=== PATIENT | male | born 1985 | race Caucasian/White ===

== ENCOUNTER 2024-03-31 19:53 | Emergency (ER) | payer MEDICAID, SELFPAY ==
--- NOTE | ~2024-03-31 | XR_ITS ---
Examination: XR elbow RT min 3V (accession [id number]), XR ankle RT min 3V (accession [id number]), XR knee RT 3V (accession [id number]) Indication: pain, injury Comparison: No pertinent prior studies are currently available for comparison. Technique: 4 views of the right knee, 3 views of the right ankle, and 3 views of the right elbow obtained Findings: Right knee: Incidental bipartite patella noted. No significant knee joint effusion. Bones are normal anatomic alignment with no acute fracture or dislocation. Right ankle: Significant soft tissue swelling is seen laterally but the underlying bony structures appear to be intact. I do not appreciate any acute fracture or dislocation. Ankle mortise alignment is preserved. Right elbow: No significant elbow joint effusion. Bones are in normal anatomic alignment with no acute fracture or dislocation. XR/XR knee RT 3V Impression: Significant soft tissue swelling about the lateral aspect of the ankle but no acute underlying fracture or dislocation seen. Electronically signed by: Donato Shaikh MD 03/31/2024 09:46 PM EDT
--- NOTE | ~2024-03-31 | XR_ITS ---
Examination: XR elbow RT min 3V (accession [id number]), XR ankle RT min 3V (accession [id number]), XR knee RT 3V (accession [id number]) Indication: pain, injury Comparison: No pertinent prior studies are currently available for comparison. Technique: 4 views of the right knee, 3 views of the right ankle, and 3 views of the right elbow obtained Findings: Right knee: Incidental bipartite patella noted. No significant knee joint effusion. Bones are normal anatomic alignment with no acute fracture or dislocation. Right ankle: Significant soft tissue swelling is seen laterally but the underlying bony structures appear to be intact. I do not appreciate any acute fracture or dislocation. Ankle mortise alignment is preserved. Right elbow: No significant elbow joint effusion. Bones are in normal anatomic alignment with no acute fracture or dislocation. XR/XR elbow RT min 3V Impression: Significant soft tissue swelling about the lateral aspect of the ankle but no acute underlying fracture or dislocation seen. Electronically signed by: Donato Shaikh MD 03/31/2024 09:46 PM EDT
--- NOTE | ~2024-03-31 | CT_ITS ---
EXAMINATION: CT HEAD WITHOUT CONTRAST CT CERVICAL SPINE WITHOUT CONTRAST CLINICAL INFORMATION: Injury with pain. COMPARISON: No relevant prior imaging. TECHNIQUE: Chancery Clerk images were obtained. CT imaging of the head and cervical spine was performed without contrast. Data was reformatted into multiplanar images at the acquisition rescission. This CT examination was performed using dose optimization techniques as appropriate, including one or more of the following: Automated exposure control, iterative reconstruction, and adjustment of technique factors (mA and/or kVp) according to patient size (this includes techniques or standardized protocols for targeted exams where dose is matched to indication/reason for exam). Fleischner Society criteria for the followup of incidental pulmonary nodules was implemented if appropriate. DLP: 3069 mGy-cm. FINDINGS: CT head: There is no acute intracranial hemorrhage or abnormal extra-axial collection. No intracranial mass effect or midline shift. Lateral and third ventricles are normal. No hydrocephalus. Mercer-white matter differentiation is preserved and there is no evidence of an acute territorial infarct. The calvarium and skull base are intact. Mastoid air cells and middle ear cavities are well aerated. No active paranasal sinus disease. Cervical spine: Alignment is normal. Vertebral body heights are preserved. No acute fracture. No abnormal prevertebral soft tissue swelling. Grossly no spinal canal compromise. No bony neuroforaminal encroachment. Visualized lung apices are clear. CT/CT cervical spine wo IV con IMPRESSION: Normal CT scan of the head and cervical spine. Electronically signed by: Kyle Perez MD 03/31/2024 10:43 PM EDT
--- NOTE | ~2024-03-31 | CT_ITS ---
EXAMINATION: CT CHEST, ABDOMEN AND PELVIS WITH CONTRAST CLINICAL INFORMATION: Pain status-post injury. COMPARISON: No pertinent prior studies are available for comparison. TECHNIQUE: Multidetector volumetric imaging was performed from the thoracic inlet through the pubic symphysis following administration of 85 mL of Omnipaque 350 intravenous contrast. Sagittal and coronal reformatted images were obtained on the technologist workstation. This CT examination was performed using dose optimization techniques as appropriate, variously including the following: *Automated exposure control. *Adjustment of mA and/or kV according to patient size (this includes techniques or standardized protocols for targeted exams where dose is matched to indication/reason for exam, i.e., extremities or head). *Use of iterative reconstruction technique. DLP: 3069 mGy-cm. FINDINGS: CHEST: LUNGS: Abutting the accessory fissure (27:205 and 31:75), an 8 mm benign fissural lymph node is seen. Within the right middle lobe anteriorly (20 solid: 212), a 4 mm noncalcified nodule is seen. There is bibasilar dependent hyperinflation. There is mild generalized small airway thickening. The central airways appear patent. MEDIASTINUM: The mediastinum is normal. Central vascular structures are unremarkable. No hilar or mediastinal lymphadenopathy. CORONARY ARTERY ATHEROSCLEROSIS: PERICARDIUM/PLEURA: There is no significant effusion. No pleural mass or thickening. CHEST WALL/AXILLA: Unremarkable. ABDOMEN/PELVIS: LIVER, GALLBLADDER, BILIARY TREE: The liver is normal in size, shape, and attenuation. No focal hepatic lesion or biliary ductal dilatation is present. The gallbladder is unremarkable with no evidence of radiopaque gallstones, gallbladder wall thickening, or pericholecystic inflammatory changes. PANCREAS: Unremarkable. SPLEEN: Unremarkable. ADRENAL GLANDS: Unremarkable. KIDNEYS AND URETERS: The kidneys are normal in size, shape, and attenuation. No hydronephrosis or hydroureter or calculi seen. No perinephric stranding. BLADDER: Unremarkable. GASTROINTESTINAL TRACT: There is moderate diverticulosis, without acute diverticulitis. There are mildly distended small bowel loops, with a maximal caliber in the mid abdomen of 3.2 cm (33:44). No free intraperitoneal air or abscess is seen. There is no focal bowel wall thickening. There is no obvious point of obstruction. The vermiform appendix is not identified with certainty; however, there is no finding to suggest appendicitis. ABDOMINAL WALL: No significant hernia is demonstrated. LYMPH NODES: Normal. VASCULAR: Unremarkable. PELVIC VISCERA: The prostate and seminal vesicles are unremarkable. OSSEOUS STRUCTURES: There is mild spondylosis at T11-12 and L3-4. No acute or aggressive osseous finding is noted. CT/CT abdomen pelvis w IV con IMPRESSION: 1. A 4 mm noncalcified, nonspecific nodule is seen within the right middle lobe. According to the UPDATED 2017 Fleischner Society recommendations, the advised follow-up imaging for solid nodules < 6 mm is: LOW RISK PATIENT: No routine follow-up. HIGH RISK PATIENT: Optional CT at 12 months. 2. There is mild generalized small airway thickening, which can be associated with acute bronchiolitis or reactive airways disease. 3. No thoracic lymphadenopathy or pleural effusion is seen. 4. There is moderate diverticulosis, without acute diverticulitis. Mildly distended proximal small bowel loops are seen with a maximal caliber of 3.2 cm. No shannon obstruction point is seen. The findings favor a mild adynamic ileus. Recommend clinical correlation and follow-up imaging as clinically indicated. 5. There is no urinary calculus or obstruction. 6. No abdominopelvic mass, free fluid or lymphadenopathy is seen. 7. No aggressive osseous lesion is seen. Electronically signed by: Barak Hays MD 03/31/2024 11:06 PM EDT
--- NOTE | ~2024-03-31 | CT_ITS ---
EXAMINATION: CT HEAD WITHOUT CONTRAST CT CERVICAL SPINE WITHOUT CONTRAST CLINICAL INFORMATION: Injury with pain. COMPARISON: No relevant prior imaging. TECHNIQUE: Cyber Intel Planner images were obtained. CT imaging of the head and cervical spine was performed without contrast. Data was reformatted into multiplanar images at the acquisition rescission. This CT examination was performed using dose optimization techniques as appropriate, including one or more of the following: Automated exposure control, iterative reconstruction, and adjustment of technique factors (mA and/or kVp) according to patient size (this includes techniques or standardized protocols for targeted exams where dose is matched to indication/reason for exam). Fleischner Society criteria for the followup of incidental pulmonary nodules was implemented if appropriate. DLP: 3069 mGy-cm. FINDINGS: CT head: There is no acute intracranial hemorrhage or abnormal extra-axial collection. No intracranial mass effect or midline shift. Lateral and third ventricles are normal. No hydrocephalus. Mercer-white matter differentiation is preserved and there is no evidence of an acute territorial infarct. The calvarium and skull base are intact. Mastoid air cells and middle ear cavities are well aerated. No active paranasal sinus disease. Cervical spine: Alignment is normal. Vertebral body heights are preserved. No acute fracture. No abnormal prevertebral soft tissue swelling. Grossly no spinal canal compromise. No bony neuroforaminal encroachment. Visualized lung apices are clear. CT/CT head/brain wo IV con IMPRESSION: Normal CT scan of the head and cervical spine. Electronically signed by: Kyle Perez MD 03/31/2024 10:43 PM EDT
--- NOTE | ~2024-03-31 | XR_ITS ---
Examination: XR elbow RT min 3V (accession [id number]), XR ankle RT min 3V (accession [id number]), XR knee RT 3V (accession [id number]) Indication: pain, injury Comparison: No pertinent prior studies are currently available for comparison. Technique: 4 views of the right knee, 3 views of the right ankle, and 3 views of the right elbow obtained Findings: Right knee: Incidental bipartite patella noted. No significant knee joint effusion. Bones are normal anatomic alignment with no acute fracture or dislocation. Right ankle: Significant soft tissue swelling is seen laterally but the underlying bony structures appear to be intact. I do not appreciate any acute fracture or dislocation. Ankle mortise alignment is preserved. Right elbow: No significant elbow joint effusion. Bones are in normal anatomic alignment with no acute fracture or dislocation. XR/XR ankle RT min 3V Impression: Significant soft tissue swelling about the lateral aspect of the ankle but no acute underlying fracture or dislocation seen. Electronically signed by: Donato Shaikh MD 03/31/2024 09:46 PM EDT
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
[2024-03-31 19:56] VITALS: BP 120/77; PULSE 99; RESP 16; TEMP 36.8; O2SAT 99; BMI 27.1
[2024-03-31 20:10] VITALS: BP 120/72; PULSE 95; RESP 17; TEMP 36.6; O2SAT 97
[2024-03-31 20:27] LABS: MANUAL DIFF FLAG NO
[2024-03-31] MEDS: Morphine Sulfate 4 MG/ML CARTRIDGE IVPUSH (20:27)
[2024-03-31] MEDS: ondansetron HCL 4 MG/2 ML VIAL IVPUSH (20:27)
[2024-03-31] MEDS: 0.9 % Sodium Chloride 1,000 ML 999 ML IV (20:28)
[2024-03-31 20:29] LABS: Basophils Absolute Auto 0.1 X10*3/uL (0.0-0.2); Basophils Percent Auto 0.5 % (0-2); Eosinophils Absolute Auto 0.2 X10*3/uL (0.0-0.4); Eosinophils Percent Auto 1.7 % (0-4); Hematocrit 42.6 % (42.0-52.0); Imm Gran Abs Auto 0.03 X10*3/uL (0.00-0.03); Imm Gran Pct Auto 0.2 % (0.0-0.4); Lymphocytes Absolute Auto 2.3 X10*3/uL (1.2-4.9); Lymphocytes Percent Auto 19.4 % (20-40); Mean Corpuscular HGB Conc 35.2 g/dl (31.0-36.0); Mean Corpuscular Hemoglobin 30.3 pg (27.0-33.0); Mean Corpuscular Volume 86.1 fL (80.0-98.0); Monocytes Absolute Auto 0.8 X10*3/uL (0.1-1.2); Neutrophils Absolute Auto 8.5 x10*3/uL (2.0-8.3); Neutrophils Percent Auto 71.2 % (45-73); Platelet Count 217 X10*3/uL (160-400); Red Blood Count 4.95 X10*6/uL (4.60-5.80)
[2024-03-31 20:35] LABS: INTERNATIONAL NORM RATIO 0.9 (0.9-1.1); Prothrombin Time 10.9 SEC (10.9-12.4)
[2024-03-31 20:38] LABS: Partial Thromboplastin Time 27.9 SEC (26.0-36.8)
[2024-03-31 20:40] LABS: Lipase 19 U/L (8-78)
[2024-03-31 20:43] LABS: Alanine Aminotransferase 43 U/L (0-40); Albumin Level 4.4 g/dL (3.5-5.0); Alkaline Phosphatase 95 U/L (39-117); Anion Gap 17 (12-20); Aspartate Amino Transferase 61 U/L (5-37); Bilirubin Total 0.5 mg/dL (0.0-1.0); Blood Urea Nitrogen 10 mg/dL (9-16); Calcium 9.3 mg/dL (8.4-10.2); Carbon Dioxide 24 mmol/L (22-29); Chloride 104 mmol/L (96-108); Creatinine Clr Calc Pharmacy 107.8; Estimated Glomerular Filt Rate > 60; Glucose Random 110 mg/dL (60-115); Magnesium 2.2 mg/dL (1.6-2.6); Potassium 3.6 mmol/L (3.3-5.1); Sodium 141 mmol/L (135-145); Total Protein 7.6 g/dL (6.5-8.0)
[2024-03-31] MEDS: iohexoL 350 MG/ML 100 ML INFUS..BTL 85 ML IV (20:58)
[2024-03-31 21:26] VITALS: BP 122/81; PULSE 86; RESP 15; TEMP 36.6; O2SAT 98
[2024-03-31 23:25] VITALS: BP 123/65; PULSE 77; RESP 18; TEMP 36.6; O2SAT 99
[2024-03-31 23:37] VITALS: BP 123/65; PULSE 77; RESP 18; TEMP 36.6; O2SAT 99
== END 2024-03-31 23:38 | disposition home or self-care (01) ==
PROVIDERS: Physician Assistant Medical; Emergency Provider Emergency Medicine
DX: S06.9X9A Unspecified intracranial injury with loss of consciousness of unspecified duration, initial encounter (principal); S93.401A Sprain of unspecified ligament of right ankle, initial encounter; S40.811A Abrasion of right upper arm, initial encounter; S80.811A Abrasion, right lower leg, initial encounter; S30.810A Abrasion of lower back and pelvis, initial encounter; W20.8XXA Other cause of strike by thrown, projected or falling object, initial encounter; Y93.89 Activity, other specified; Y92.410 Unspecified street and highway as the place of occurrence of the external cause; Y99.9 Unspecified external cause status; R55 Syncope and collapse
CPT/HCPCS: 36415; 70450; 71260; 72125; 73080; 73562; 73610; 74177; 80053; 83690; 83735; 85025; 85610; 85730; 96361; 96374; 96375; 99284; 99285; J2270; J2405; Q9967